=== PATIENT | male | born 1990 | race Caucasian/White ===

== ENCOUNTER 2017-08-15 19:25 | Emergency (ER) | payer OTHER ==
[~2017-08-15] VITALS: Ht 170.2 cm; Wt 67.6 kg
== END 2017-08-15 23:14 | disposition home or self-care (01) ==
LOC: ER 19:25
DX: M25.571 Pain in right ankle and joints of right foot (principal); G89.11 Acute pain due to trauma

== ENCOUNTER 2017-09-09 11:22 | Emergency (ER) | payer OTHER ==
[~2017-09-09] VITALS: Ht 170.2 cm; Wt 63.5 kg
[2017-09-11] MEDS ORDERED: SUBOXONE 8 MG-1 EACH SL (12:43)
== END 2017-09-09 16:39 | disposition home or self-care (01) ==
LOC: ER 11:22
DX: L02.422 Furuncle of left axilla (principal)

== ENCOUNTER → 2017-09-11 | Emergency (ER) | payer OTHER ==
[~2017-09-11] VITALS: Ht 170.2 cm; Wt 63.5 kg
[~2017-09-11] MED LIST: SUBOXONE 8 MG-1 EACH SL
== END | disposition home or self-care (01) ==
LOC: ER 12:12
DX: L02.412 Cutaneous abscess of left axilla (principal)